=== PATIENT | male | born 1975 | race Caucasian/White ===

== ENCOUNTER 2020-04-09 08:06 | Emergency (ER) | payer BC ==
--- NOTE | 2020-04-09 08:44 | EDPHYS ---
Physician Documentation [facility] Name: Mo Estrada Age: 44 yrs Sex: Male : 1975 Arrival Date: 04/09/2020 Time: 08:27 Bed 5 Private MD: Fredy Polk ED Physician Armando Edwards HPI: 04/09 08:41 This 44 yrs old Male presents to ER via Ambulatory with complaints of Wound pm1 Infection. 08:41 The patient presents with cellulitis of the dorsum of right foot. Description: pm1 erythematous, raised. Patient with laceration from broken cup on 04/02. Used some OTC chemical cautery and went to [facility]. No laceration repair due to chemical cautery and patient prescribed keflex. Patient decided not to take Keflex until it started to show some signs of infection. Redness and swelling onset 04/06. Started Keflex on 04/07 . Historical: - Allergies: 08:37 SHELLFISH; iw - PMHx: 08:37 Hyperlipidemia; Hypertension; iw - PSHx: 08:37 cardiac stents; hand sx; iw - Immunization history:: Adult Immunizations up to date. - Social history:: Smoking status: Patient denies any tobacco usage or history of. ROS: 08:41 Constitutional: Negative for fever, chills, and weight loss, Cardiovascular: Negative pm1 for chest pain, palpitations, and edema, Respiratory: Negative for shortness of breath, cough, wheezing, and pleuritic chest pain, Abdomen/GI: Negative for abdominal pain, nausea, vomiting, diarrhea, and constipation, Back: Negative for injury and pain, MS/Extremity: Negative for injury and deformity. 08:41 Neuro: Negative for headache, weakness, numbness, tingling, and seizure. 08:41 Skin: Positive for cellulitis, of the dorsum of right foot. Exam: 08:41 Constitutional: This is a well developed, well nourished patient who is awake, alert, pm1 and in no acute distress. Head/Face: Normocephalic, atraumatic. 08:41 Cardiovascular: Exam negative for acute changes, Rate: normal, Rhythm: regular, Pulses: no pulse deficits are appreciated. 08:41 Respiratory: Exam negative for acute changes, respiratory distress, shortness of breath. 08:41 Skin: Appearance: normal except for affected area, abscess, not appreciated, cellulitis, that is mild, on the dorsum of right foot. 08:41 Neuro: Exam negative for acute changes, Orientation: is normal, Mentation: is normal, Motor: is normal, moves all fours. Vital Signs: 08:40 BP 136 / 90; Pulse 87; Resp 16; Temp 98.7(TE); Pulse Ox 99% on R/A; Weight 86.18 kg; ss Height 5 ft. 10 in. (177.80 cm); Pain 0/10; 08:40 Body Mass Index 27.26 (86.18 kg, 177.80 cm) ss MDM: 08:30 Patient medically screened. pm1 08:41 Data reviewed: vital signs. Data interpreted: Pulse oximetry: on room air is 99 %. pm1 Interpretation: normal. 08:41 Counseling: I had a detailed discussion with the patient and/or guardian regarding: the pm1 historical points, exam findings, and any diagnostic results supporting the discharge/admit diagnosis, the need for outpatient follow up, a family practitioner, to return to the emergency department if symptoms worsen or persist or if there are any questions or concerns that arise at home. 08:41 ED course: Patient 's took daily pictures of his right foot and wound. Patient's wound pm1 shows improvement on keflex. Not failed antibiotic therapy but will provide double coverage and discharge the patient home with Bactrim. Administered Medications: No medications were administered Disposition: 10:56 Co-signature as Attending Physician, Armando Edwards MD. rn Disposition: 04/09/20 08:43 Discharged to Home. Impression: Cellulitis of right lower limb - dorsum of right foot. - Condition is Stable. - Discharge Instructions: Cellulitis, Adult. - Prescriptions for Bactrim DS 800- 160 mg Oral Tablet - take 1 tablet by ORAL route every 12 hours for 10 days; 20 tablet. Tramadol 50 mg Oral Tablet - take 1 tablet by ORAL route every 8 hours as needed; 12 tablet. - Work release form, Medication Reconciliation Form, Thank You Letter, Antibiotic Education, Prescription Opioid Use form. - Follow up: Emergency Department; When: As needed; Reason: Worsening of condition. Follow up: Private Physician; When: 2 - 3 days; Reason: Recheck today's complaints, Continuance of care, Re-evaluation by your physician. - Problem is new. - Symptoms have improved. Signatures: Latanya Mata RN RN sv Williams, Irene, RN RN iw Nieto, Roman, MD MD rn Smirch, Shelby, RN RN ss Marinas, Patrick, LABOR RELATIONS CONSULTANT LABOR RELATIONS CONSULTANT pm1 Corrections: (The following items were deleted from the chart) 08:59 08:43 04/09/2020 08:43 Discharged to Home. Impression: Cellulitis of right lower limb - sv dorsum of right foot. Condition is Stable. Forms are Medication Reconciliation Form, Thank You Letter, Antibiotic Education, Prescription Opioid Use. Follow up: Emergency Department; When: As needed; Reason: Worsening of condition. Follow up: Private Physician; When: 2 - 3 days; Reason: Recheck today's complaints, Continuance of care, Re-evaluation by your physician. Problem is new. Symptoms have improved. pm1
--- NOTE | 2020-04-09 08:44 | ER ---
Nurse's Notes [facility] Name: Mo Estrada Age: 44 yrs Sex: Male : 1975 Arrival Date: 04/09/2020 Time: : Bed 5 Private MD: Fredy Polk Diagnosis: Cellulitis of right lower limb-dorsum of right foot Presentation: 04/09 08:40 Chief complaint: Patient states: Laceration to top of R foot 7 days ago. Was seen at [facility] ER and given antibiotics, but did not take them until two days ago. Pt reports increased swelling and redness to area x 3 days. Coronavirus screen: Patient denies a cough. Patient denies shortness of breath or difficulty breathing. Patient denies measured and/or subjective temperature greater than 100.4F prior to today's visit. Patient denies travel on a cruise ship or to a country the [facility] currently lists as an affected area. Patient denies contact with known and/or suspected case of COVID-19. Proceed with normal triage. Ebola Screen: Patient denies exposure to infectious person. Patient denies travel to an Ebola-affected area in the 21 days before illness onset. Initial Sepsis Screen: Does the patient meet any 2 criteria? No. Patient's initial sepsis screen is negative. Does the patient have a suspected source of infection? Yes: Skin breakdown/wound. Risk Assessment: Do you want to hurt yourself or someone else? Patient reports no desire to harm self or others. Onset of symptoms was April 06, 2020. 08:40 Method Of Arrival: Ambulatory 08:40 Acuity: OTONIEL 4 Historical: - Allergies: 08:37 SHELLFISH; iw - PMHx: 08:37 Hyperlipidemia; Hypertension; iw - PSHx: 08:37 cardiac stents; hand sx; iw - Immunization history:: Adult Immunizations up to date. - Social history:: Smoking status: Patient denies any tobacco usage or history of. Screenin:41 Abuse screen: Denies threats or abuse. Denies injuries from another. Nutritional iw screening: No deficits noted. Tuberculosis screening: No symptoms or risk factors identified. 09:00 Fall Risk None identified. sv Assessment: 08:38 General: Appears in no apparent distress. comfortable, Behavior is calm, cooperative. iw Neuro: Level of Consciousness is awake, alert, obeys commands, Oriented to person, place, time, situation, Moves all extremities. Full function. Cardiovascular: Patient's skin is warm and dry. Respiratory: Respiratory effort is even, unlabored. Derm: Skin is healthy with good turgor, Wound noted dorsum of right foot. Musculoskeletal: Range of motion: intact in all extremities. Vital Signs: 08:40 BP 136 / 90; Pulse 87; Resp 16; Temp 98.7(TE); Pulse Ox 99% on R/A; Weight 86.18 kg; ss Height 5 ft. 10 in. (177.80 cm); Pain 0/10; 08:40 Body Mass Index 27.26 (86.18 kg, 177.80 cm) ED Course: 08:27 Patient arrived in ED. mr 08:27 Fredy Polk MD is Private Physician. mr 08:30 [facility] pm1 08:30 Armando Edwards MD is Attending Physician. pm1 08:37 Selena Snyder RN is Primary Nurse. iw 08:40 Arm band placed on right wrist. ss 08:43 Triage completed. ss 08:43 No provider procedures requiring assistance completed. Patient did not have IV access iw during this emergency room visit. 08:59 Patient has correct armband on for positive identification. sv Administered Medications: No medications were administered Outcome: 08:43 Discharge ordered by . pm1 08:59 Discharged to home via wheelchair. sv 08:59 Condition: stable 08:59 Discharge instructions given to patient, Instructed on discharge instructions, follow up and referral plans. medication usage, Demonstrated understanding of instructions, follow-up care, medications, Prescriptions given X 2. 08:59 Patient left the ED. sv Signatures: Latanya Mata RN RN sv Genesis Almonte mr Selena Snyder RN RN Triny Moscoso RN RN ss Marinas, Patrick, NP SQUEEGEE FINISHER pm1
--- OUTSIDE RECORDS SUMMARY | 2020-04-09 08:45 | XMS REPORT | Continuity of Care Document ---
:1975 Author Organization [facility] t Address [address] [place] [address] Care Team Providers Name Role Phone Pedrito Gomez Attending Clinician Problems This patient has no known problems. Allergies, Adverse Reactions, Alerts This patient has no known allergies or adverse reactions. Medications This patient has no known medications. Procedures This patient has no known procedures. Encounters Start End Encounter Admission Attending Care Care Encounter Source Date/Time Date/Time Type Type Clinicians Facility Department ID 2020-04-02 2020-04-03 Emergency TAM [facility]idal [id number] 23:02:41 00:00:00 Rashaad [place] [id number] [place] [id number] [place] [id number] Results This patient has no known results.
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
[2020-04-09 09:05] VITALS: BP 136/90; TEMP 98.7; O2SAT 99
== END 2020-04-09 08:59 | disposition home or self-care (01) ==
LOC: ER 08:06
DX: L03.115 Cellulitis of right lower limb (principal); I10 Essential (primary) hypertension; Z95.818 Presence of other cardiac implants and grafts; Z91.013 Allergy to seafood
CPT/HCPCS: 99282